=== PATIENT | male | born 1930 | race Caucasian/White ===

== ENCOUNTER 2016-10-21 19:46 | Inpatient (IN) | payer MEDICARE, BC, OTHER ==
[~2016-10-21] VITALS: Ht 182.9 cm; Wt 63.1 kg
[2016-10-21 19:46] VITALS: BP 154/75; PULSE 91; TEMP 98.3
[~2016-10-21 19:46] MED LIST: ASPI81TA82 PO; KETO10 PO; OMEP20TA PO; TAMS0.4C67 PO; ZOFR4TAB3 SL
[2016-10-21 19:53] VITALS: BP 154/75; PULSE 89; RESP 20; O2SAT 93
[2016-10-21] MEDS ORDERED: [UNRECOGNIZED DRUG - CODE] EACH EYE (19:58)
[2016-10-21] MEDS ORDERED: AMOX400C CHEW (19:58)
[2016-10-21] MEDS ORDERED: HYDRLIQ11 PO (19:58)
[2016-10-21] MEDS ORDERED: SODIUM CHLORIDE 0.9% FLUSH 5 ML FLUSH IVF PRN (20:00)
[2016-10-21] MEDS ORDERED: methylPREDNISolone SOD SUCC 125 MG/2 ML VIAL IVP ONE (20:00)
[2016-10-21] MEDS ORDERED: TIMO0.255 EACH EYE (20:00)
[2016-10-21] MEDS: RESP: ALBUTEROL 2.5 MG/IPRATROPIUM 0.5 MG NEB (SCH) INH (20:00)
[2016-10-21 20:11] LABS: AUTOMATED NEUTROPHIL # 8.8 TH/MM3 (1.8-7.7); BASOPHIL # 0.4 TH/MM3 (0-0.2); BASOPHIL % 3.7 % (0.0-2.0); EOSINOPHIL % 0.1 % (0.0-4.0); HEMATOCRIT 42.2 % (39.0-51.0); LYMPH % 5.2 % (9.0-44.0); LYMPHOCYTE # 0.5 TH/MM3 (1.0-4.8); MEAN CELL VOLUME 92.5 FL (80.0-100.0); MEAN CORPUSCULAR HEMOGLOBIN 31.6 PG (27.0-34.0); MEAN CORPUSCULAR HGB CONC 34.2 % (32.0-36.0); MONO % 7.1 % (0.0-8.0); NEUT % 83.9 % (16.0-70.0); PLATELET COUNT 229 TH/MM3 (150-450); RED BLOOD COUNT 4.57 MIL/MM3 (4.50-5.90); RED CELL DISTRIBUTION WIDTH 13.3 % (11.6-17.2); WHITE BLOOD COUNT 10.4 TH/MM3 (4.0-11.0)
[2016-10-21 20:13] VITALS: O2SAT 97
[2016-10-21 20:20] LABS: CHLORIDE 98 MEQ/L (98-107); POTASSIUM 3.9 MEQ/L (3.5-5.1); SODIUM (NA) 139 MEQ/L (136-145)
[2016-10-21 20:23] LABS: ANION GAP 8 MEQ/L (5-15); BICARBONATE 33.5 MEQ/L (21.0-32.0)
[2016-10-21 20:24] LABS: BLOOD UREA NITROGEN 26 MG/DL (7-18); MAGNESIUM 1.9 MG/DL (1.5-2.5)
[2016-10-21 20:25] LABS: HEMO FLAGS AUTO DIFF
[2016-10-21 20:26] LABS: ALT (GPT) 15 U/L (12-78)
[2016-10-21 20:27] LABS: AST (GOT) 17 U/L (15-37); GLOMERULAR FILTRATION RATE 71 ML/MIN (>89)
[2016-10-21 20:28] LABS: TOTAL BILIRUBIN ADULT 1.2 MG/DL (0.2-1.0)
[2016-10-21 20:29] LABS: ALKALINE PHOSPHATASE 64 U/L (45-117); PLATELET ESTIMATE SMEAR NORMAL (NORMAL); PLATELET MORPHOLOGY NORMAL (NORMAL); SCAN/DIFF AUTO DIFF CONFIRMED
[2016-10-21 20:32] VITALS: BP 130/61; PULSE 89; O2SAT 95
[2016-10-21 20:37] LABS: CREATINE KINASE 91 U/L (39-308)
[2016-10-21 20:53] LABS: BLOOD GAS BASE EXCESS 5.6 mmol/L (-2-2); BLOOD GAS CARBOXYHEMOGLOBIN 2.3 % (0-4); BLOOD GAS HCO3 30 mmol/L (22-26); BLOOD GAS METHEMOGLOBIN 1.1 % (0-2); BLOOD GAS O2 HGB SATURATION 82 % (90-100); BLOOD GAS OXYGEN CONTENT 16.3 Vol % (12.0-20.0); BLOOD GAS PCO2 46 mmHG (38-42); BLOOD GAS PO2 50 mmHG (61-120); BLOOD GAS TOTAL HGB 14.1 G/DL (12.0-16.0); TEMP CORR TO 98.6
[2016-10-21 20:54] LABS: CRITICAL VALUE YES; DRAW SITE RT RADIAL; FIO2 21 %; NUMBER OF ARTERIAL PUNCTURES 1; STAT YES; ULNAR PULSE Y
--- NOTE | 2016-10-21 21:13 | PD ---
HPI Chief Complaint: Respiratory Symptoms Time Seen by Provider: 19:53 Travel History International Travel<30 days: No Contact w/Intl Traveler<30days: No Traveled to known affect area: No History of Present Illness HPI The patient is an 85-year-old male with a history of COPD who states for the past week he has been slightly short of breath but 1 hour prior to admission the patient had increasing shortness of breath and his drove him here to the emergency department. He denies any fever. He does not have a history of congestive heart failure. He does not smoke. 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 Dr. Healy is the patient's primary care physician. The patient has a history of recent pulmonary embolus. PFSH Past Medical History Anemia: Yes (CHILDHOOD) Arthritis: Yes Anxiety: Yes Cancer: No Cardiovascular Problems: No COPD: Yes (ASBESTOSIS "FROM THE [employer]") Endocrine: No Gastrointestinal Disorders: Yes ("DR SAYS I HAVE A HERNIA IN MY ESOPHAGUS, CAN' T SWALLOW PILLS" STATED 10/21) GERD: Yes Genitourinary: Yes Immune Disorder: No Implanted Vascular Access Dvce: Yes Kidney Stones: Yes Musculoskeletal: Yes Neurologic: No Psychiatric: No Reproductive: No Respiratory: Yes (P.E.) Pneumonia: Yes Shingles: Yes Tetanus Vaccination: > 5 Years Influenza Vaccination: Yes Past Surgical History Body Medical Devices: TEETH IMPLANTS Eye Surgery: Yes (RIGHT RETINAL DISPLACEMENT ) Genitourinary Surgery: Yes (LITHOTRIPSY) Oral Surgery: Yes (TONSIL REMOVAL ) Tonsillectomy: Yes Other Surgery: Yes Social History Alcohol Use: No Tobacco Use: No (QUIT IN 1952) Substance Use: No Allergies-Medications (Allergen,Severity, Reaction): Coded Allergies: No Known Allergies (Unverified , 10/21/16) Reported Meds & Prescriptions Reported Meds & Active Scripts Active Reported Timoptic Opth Drops (Timolol Opth Drops) 0.25 % Soln 1 Drop EACH EYE BID Hydrocodone-Chlorpheniramine 12 HR Liq 10-8 Mg/5 Ml Liq 5 Ml PO Q12H PRN Amoxicillin-Clavulanate 400-57 mg Chew 400 Mg CHEW BID Contains phenylalanine. Review of Systems Except as stated in HPI: all other systems reviewed are Neg Physical Exam Narrative GENERAL: The patient is alert, oriented 3 in moderate respiratory distress. His vital signs show blood pressure 154/75 with respirations 20 and oximetry 93 % on 3 L nasal cannula. SKIN: Warm and dry. HEAD: Atraumatic. Normocephalic. EYES: Pupils equal and round. No scleral icterus. No injection or drainage. ENT: No nasal bleeding or discharge. Mucous membranes pink and moist. NECK: Trachea midline. No JVD. CARDIOVASCULAR: Regular rate and rhythm. No murmur appreciated. RESPIRATORY: No accessory muscle use. Clear to auscultation. Breath sounds equal bilaterally. Bilateral wheezes are heard in all lung joseph. GASTROINTESTINAL: Abdomen soft, non-tender, nondistended. Hepatic and splenic margins not palpable. MUSCULOSKELETAL: No obvious deformities. No clubbing. No cyanosis. No edema. NEUROLOGICAL: Awake and alert. No obvious cranial nerve deficits. Motor grossly within normal limits. Normal speech. PSYCHIATRIC: Appropriate mood and affect; insight and judgment normal. Data Data Last Documented VS Vital Signs Date Time Temp Pulse Resp B/P Pulse Ox O2 Delivery O2 Flow Rate FiO2 10/21/16 21:37 84 20 148/72 96 Non-Rebreather 9 10/21/16 19:46 98.3 Orders Complete Blood Count With Diff (10/21/16 19:53) Comprehensive Metabolic Panel (10/21/16 19:53) B-Type Natriuretic Peptide (10/21/16 19:53) Magnesium (Mg) (10/21/16 19:53) Ckmb (Isoenzyme) Profile (10/21/16 19:53) Troponin I (10/21/16 19:53) Arterial Blood Gas (Abg) (10/21/16 19:53) Urinalysis - C+S If Indicated (10/21/16 19:53) Iv Access Insert/Monitor (10/21/16 19:53) Ecg Monitoring (10/21/16 19:53) Oximetry (10/21/16 19:53) Oxygen Administration (10/21/16 19:53) Chest, Pa & Lat (10/21/16 19:53) Sodium Chloride 0.9% Flush (Ns Flush) (10/21/16 20:00) Methylprednisolone So Succ Inj (Solumedr (10/21/16 20:00) Albuterol-Ipratropium Neb (Duoneb Neb) (10/21/16 20:00) Labs Laboratory Tests Test 10/21/16 10/21/16 10/21/16 19:55 20:43 21:40 White Blood Count 10.4 TH/MM3 Red Blood Count 4.57 MIL/MM3 Hemoglobin 14.4 GM/DL Hematocrit 42.2 % Mean Corpuscular Volume 92.5 FL Mean Corpuscular Hemoglobin 31.6 PG Mean Corpuscular Hemoglobin 34.2 % Concent Red Cell Distribution Width 13.3 % Platelet Count 229 TH/MM3 Mean Platelet Volume 8.5 FL Neutrophils (%) (Auto) 83.9 % Lymphocytes (%) (Auto) 5.2 % Monocytes (%) (Auto) 7.1 % Eosinophils (%) (Auto) 0.1 % Basophils (%) (Auto) 3.7 % Neutrophils # (Auto) 8.8 TH/MM3 Lymphocytes # (Auto) 0.5 TH/MM3 Monocytes # (Auto) 0.7 TH/MM3 Eosinophils # (Auto) 0.0 TH/MM3 Basophils # (Auto) 0.4 TH/MM3 CBC Comment AUTO DIFF Differential Comment AUTO DIFF CONFIRMED Platelet Estimate NORMAL Platelet Morphology Comment NORMAL Red Cell Morphology Comment NORMAL Sodium Level 139 MEQ/L Potassium Level 3.9 MEQ/L Chloride Level 98 MEQ/L Carbon Dioxide Level 33.5 MEQ/L Anion Gap 8 MEQ/L Blood Urea Nitrogen 26 MG/DL Creatinine 1.00 MG/DL Estimat Glomerular Filtration 71 ML/MIN Rate Random Glucose 152 MG/DL Calcium Level 9.1 MG/DL Magnesium Level 1.9 MG/DL Total Bilirubin 1.2 MG/DL Aspartate Amino Transf 17 U/L (AST/SGOT) Alanine Aminotransferase 15 U/L (ALT/SGPT) Alkaline Phosphatase 64 U/L Total Creatine Kinase 91 U/L Troponin I 0.04 NG/ML B-Type Natriuretic Peptide 77 PG/ML Total Protein 7.7 GM/DL Albumin 3.2 GM/DL Blood Gas Puncture Site RT RADIAL Blood Gas Patient Temperature 98.6 Blood Gas HCO3 30 mmol/L Blood Gas Base Excess 5.6 mmol/L Blood Gas Oxygen Saturation 82 % Arterial Blood pH 7.43 Arterial Blood Partial 46 mmHG Pressure CO2 Arterial Blood Partial 50 mmHG Pressure O2 Arterial Blood Oxygen Content 16.3 Vol % Arterial Blood 2.3 % Carboxyhemoglobin Arterial Blood Methemoglobin 1.1 % Blood Gas Hemoglobin 14.1 G/DL Blood Gas Inspired Oxygen 21 % Urine pH 6.0 Urine Protein TRACE mg/dL Urine Glucose (UA) NEG mg/dL Urine Ketones 15 mg/dL Urine Occult Blood NEG Urine Nitrite NEG Urine Bilirubin NEG Urine Leukocyte Esterase NEG MDM Medical Decision Making Medical Screen Exam Complete: Yes Emergency Medical Condition: Yes Medical Record Reviewed: Yes Interpretation(s) The blood gases show pH 7.43, CO2 46, PO2 49.8 with O2 sat 82% supposedly on room air but the patient was taken off oxygen only 5 minutes when his O2 saturation dropped in the low 80s and blood gases were taken at that time. The complete metabolic profile shows a BUN of 26, glucose 152, albumin 3.2, total bilirubin 1.2 with bicarbonate 33.5 but is otherwise normal. The cardiac enzymes are normal. The BNP is normal. Differential Diagnosis COPD with acute exacerbation, pneumonia, bronchitis, electrolyte disorder, renal insufficiency, hypo-/hyperglycemia, pulmonary embolus, hypoxemia Narrative Course The patient appears to have COPD with acute exacerbation and hypoxemia. Plan: The patient be admitted to Dr. Healy, I discussed the patient with her. Physician Communication Physician Communication I discussed the patient with Dr. Healy Diagnosis Primary Impression: COPD with acute exacerbation Additional Impression: Hypoxemia Admitting Information Admitting Physician Requests: Admit Sukhdeep Hennessy MD Oct 21, 2016 21:13
--- NOTE | 2016-10-21 21:34 | RADHPO ---
EXAM DATE/TIME: 10/21/2016 21:13 [facility] COMPARISON: CHEST SINGLE AP, March 16, 2014, 15:06. INDICATIONS : Shortness of breath and weak feeling MEDICAL HISTORY : Asbestosis SURGICAL HISTORY : None. ENCOUNTER: Initial ACUITY: 1 day PAIN SCORE: 0/10 LOCATION: Bilateral chest FINDINGS: Severe pleural thickening and pleural as well as parenchymal scarring with distortion seen of both bobo ng apices, appears very similar to 2014. There is lateral pleural thickening, also stable. No acute i nfiltrate seen. No pleural effusion. No pneumothorax. CONCLUSION: Stable chronic findings. No acute infiltrate seen. Jake Lara MD on October 21, 2016 at 21:30 Board Certified Radiologist. This report was verified electronically.
[2016-10-21 21:37] VITALS: BP 148/72; PULSE 84; RESP 20; O2SAT 96
[2016-10-21 21:51] LABS: BLOOD, URINE NEG (NEG); GLUCOSE,URINE NEG (NEG); KETONE, URINE 15 mg/dL (NEG); NITRITE,URINE NEG (NEG)
[2016-10-21] MEDS ORDERED: ACETAMINOPHEN 325 MG TAB PO PRN (22:00)
[2016-10-21] MEDS ORDERED: NALOXONE HCL 0.4 MG/ML AMP IV PRN (22:00)
[2016-10-21] MEDS ORDERED: SODIUM CHLORIDE 0.9% FLUSH 5 ML FLUSH FLUSH PRN (22:00)
[2016-10-21 22:04] LABS: MUCUS URINE FEW /lpf (OCC); URINE COLOR YELLOW (YELLW/STRAW)
[2016-10-21 22:05] LABS: COMMENT (UR) CULT NOT INDICATED; CULTURE IF INDICATED CULT NOT INDICATED; SQUAMOUS EPITHELIAL CELL URINE 0-5 /hpf (0-5); WBC, URINE 0-2 /hpf (0-5)
[2016-10-21] MEDS ORDERED: IOHEXOL 350 MG/ML 10 ML VIAL (for RAD DIAG) IV ONE (22:23)
[2016-10-21] MEDS: ENOXAPARIN SODIUM 40 MG/0.4 ML SYRINGE SQ SCH (22:51)
--- NOTE | 2016-10-21 22:53 | RADHPO ---
EXAM DATE/TIME: 10/21/2016 22:07 [facility] COMPARISON: No previous studies available for comparison. INDICATIONS : Shortness of breath. Evaluate for embolism. IV CONTRAST: 100 cc Omnipaque 350 (iohexol) IV RADIATION DOSE: 8.14 CTDIvol (mGy) MEDICAL HISTORY : Chronic obstructive pulmonary disease. Asbestosis. SURGICAL HISTORY : None. ENCOUNTER: Initial ACUITY: 1 day PAIN SCALE: 0/10 LOCATION: Bilateral chest TECHNIQUE: Volumetric scanning of the chest was performed using a pulmonary embolism protocol MIP images were re constructed. Using automated exposure control and adjustment of the mA and/or kV according to patien t size, radiation dose was kept as low as reasonably achievable to obtain optimal diagnostic quality images. FINDINGS: No pulmonary embolus. Patchy consolidation and chronic apical and basilar interstitial changes with t raction bronchiectasis noted. There are small, bilateral pleural effusions. No pneumothorax. Heart size within normal limits. There is coronary artery calcification. CONCLUSION: 1. No pulmonary embolus. 2. Patchy acute consolidation superimposed on chronic parenchymal and pleural scarring with traction bronchiectasis. 3. Coronary artery calcification. Jake Lara MD on October 21, 2016 at 22:50 Board Certified Radiologist. This report was verified electronically.
[2016-10-22] VITALS (10 sets, daily range): BP systolic 130–143; BP diastolic 64–79; PULSE 71–83; RESP 16–20; TEMP 96.4–98.5; O2SAT 94–100
[2016-10-22] MEDS: CHLORPHENIR/HYDROCOD LIQUID 8 MG/10 MG/5 ML CUP PO PRN ×2 (00:20→11:15)
[2016-10-22] MEDS: RESP: ALBUTEROL 2.5 MG/IPRATROPIUM 0.5 MG NEB (SCH) NEB ×4 (08:25→19:42)
[2016-10-22] MEDS: TIMOLOL MALEATE 0.25% OPHT SOLN 5 ML BTL EACH EYE SCH ×2 (09:00→20:23)
[2016-10-22] MEDS ORDERED: AZITHROMYCIN 250 MG TAB PO SCH (09:00)
--- NOTE | 2016-10-22 09:17 | MH ---
cc: TIMOTHY COULTER M.D. DATE OF ADMISSION: 10/21/2016 CHIEF COMPLAINT Increased shortness of breath and fever. HISTORY OF PRESENT ILLNESS Mr. Youngblood is an 85-year-old white male, well-known to me from the office, who has a past history of pulmonary asbestosis and mild pulmonary fibrosis with a chronic small pleural effusion. He has noted a gradual decline in his function over the past year or so becoming really more prominent since July. He has seen me in the office. He has done a CT angiogram as he previously had pulmonary emboli in 2013, but his evaluation for pulmonary emboli and infection have been negative. We had done an echocardiogram that was also negative for cardiomyopathy or valvular disease and he saw Dr. Rios Wray for evaluation. He felt that his lung function studies were all stable over a few years and he did not need any particular therapy. Approximately a week and a half ago he became ill with an upper respiratory infection and cough, was seen in my office and placed on Augmentin and nebulizers with cough medication p.r.n. He continued to worsen and had a fever to 101.5 last evening at home which brought him here to the hospital. He is having increased shortness of breath and barely able to make it across the room without having to stop to rest. He was increasingly fatigued. Did not have muscle pains, other aches or other symptoms. He did have nausea yesterday but no vomiting. He has had no bowel movements for two days and is feeling somewhat constipated. He is feeling somewhat better this morning compared to last evening's shortness of breath. PAST MEDICAL HISTORY 1. Pulmonary asbestosis. 2. Glaucoma. 3. 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 4. Gastroesophageal reflux disease, under control. 5. History of kidney stones. 6. Osteoarthritis. PAST SURGICAL HISTORY Tonsillectomy. MEDICATIONS Medication at home usually only includes Timolol. He has had nebulizers and Augmentin for the past week as well as Tussionex p.r.n. for the cough. ALLERGIES No known drug allergies. FAMILY HISTORY His parents' history is really unknown. He has children who are healthy. SOCIAL HISTORY He is . He has no tobacco history, no alcohol history. He is retired. IMMUNIZATIONS He has been up-to-date on his pneumococcal vaccine. I do not think that he usually takes his flu shot. REVIEW OF SYSTEMS He denies chest discomfort. Increasing shortness of breath. Cough is improved. He did have sputum last week that is now resolved. Fever to 101.5 at home but afebrile since being here. He has had some nausea that has resolved. No vomiting. He has had decrease in his bowel movements, decreased p.o. intake, has had no appetite. He has been living on "Boost." He notes difficulty swallowing and a lot of times food will get stuck and come back up. He has not had further evaluation of that at this time. He feels as though he has had some weight loss and he does look like he has. He has had no lower extremity edema, no changes to his skin, just generalized weakness. No neck discomfort. No sore throat. No ear pain. The remainder of the review of systems is negative. PHYSICAL EXAMINATION VITAL SIGNS: Temperature has been 98.1 since admission. Pulse has been in the 70s to 80s. Blood pressure 141/64. O2 sats 100% on nasal cannula at 3 liters. Last evening when he got to the emergency department he was running in the low 80s and was placed on a non-rebreather mask and gradually decreased throughout the evening. GENERAL: A thin elderly white male sitting up, in bed in no acute distress at this time. He has O2 on at 3 liters nasal cannula. HEENT: Pupils are minimally reactive. He has a white film mostly over the right eye, somewhat over the left eye. He has very minimal vision. Nose no discharge. Oropharynx appears benign at this time. NECK: Supple. Very thin, somewhat cachectic. No adenopathy noted. No supraclavicular adenopathy. CARDIOVASCULAR: Regular rate and rhythm without murmurs. LUNGS/CHEST: Bilateral wheezing. Respiratory rate about 18. He does not appear in distress. There are no retractions. Again cachexia. His ribs are visible. ABDOMEN: Soft, nontender, nondistended. Normal active bowel sounds. No masses palpable. EXTREMITIES: Good range of motion. He has bilateral lower extremity varicosities without signs of infection. He has 2+ dorsalis pedis pulses. He is able to move all extremities well. He is able to stand independently from the bed and walk to the bathroom with minimal guidance, somewhat stiff in his movements. LABORATORY DATA White count 10.4, hemoglobin 14.4, platelets 22.9. He does have a left shift with 83.9% neutrophils. Lymphocytes 5.2%. No bands were noted. Urinalysis was clear other than 15 ketones, GFR of 71. Liver functions within normal limits. Albumin slightly low at 3.2. His blood gas last night on oxygen showed a pH of 7.43, PCO2 46, PO2 50, bicarb 30, O2 sat 82%. IMAGING DATA Chest x-ray was unremarkable. CT angiogram showed no signs of pulmonary embolus. He had patchy acute consolidation upon chronic parenchymal pleural scarring with traction bronchiectasis. He did have coronary artery calcifications. ASSESSMENT AND PLAN 1. Bronchiectasis atop of chronic pulmonary fibrosis. Will place him on nebulizers, IV steroids, Rocephin and Zithromax given his recent fever, and monitor his course. Will have him up with physical therapy to assess his ambulation. Anticipate a 2-3 day stay to break the bronchospasm. He does have a nebulizer at home. He does have difficulty swallowing pills so will need to provide him with liquid medications where possible. 2. Glaucoma/chronic vision loss. He is legally blind. Will continue his timolol. He has not had problems with bronchospasm regarding the timolol in the past and he has been on this long-term. Should he continue to have problems will need to speak with ophthalmology about changing his glaucoma medication. 3. Constipation. Will add stool softeners for him, does not seem to be severe at this time. 4. Weight loss. I have done an evaluation from the office and there is no particular reason for his weight loss other than decline in his pulmonary tolerance. Will encourage exercise as tolerable. 5. Dysphagia. May need to get him back with GI again in the near future, who he has seen for esophageal dilation in the past. MD DAYAN Styles/CHRISTY /8:16 AM /8:44 AM
[2016-10-22] MEDS: methylPREDNISolone SOD SUCC 40 MG/1 ML VIAL IV PUSH SCH ×2 (11:06→20:21)
[2016-10-22] MEDS: SODIUM CHLORIDE 0.9% FLUSH 5 ML FLUSH FLUSH SCH ×2 (11:06→20:22)
[2016-10-22] MEDS: AZITHROMYCIN SUSP 200 MG/5 ML 15 ML BTL PO SCH (11:15)
[2016-10-22] MEDS: ENOXAPARIN SODIUM 40 MG/0.4 ML SYRINGE SQ SCH (20:22)
[2016-10-23] VITALS (9 sets, daily range): BP systolic 127–149; BP diastolic 72–89; PULSE 62–86; RESP 17–20; TEMP 96.3–97.7; O2SAT 91–99
[2016-10-23] MEDS: RESP: ALBUTEROL 2.5 MG/IPRATROPIUM 0.5 MG NEB (SCH) NEB ×4 (07:53→20:12)
[2016-10-23] MEDS: TIMOLOL MALEATE 0.25% OPHT SOLN 5 ML BTL EACH EYE SCH ×2 (09:08→21:52)
[2016-10-23] MEDS: SODIUM CHLORIDE 0.9% FLUSH 5 ML FLUSH FLUSH SCH ×2 (09:09→21:53)
[2016-10-23] MEDS: methylPREDNISolone SOD SUCC 40 MG/1 ML VIAL IV PUSH SCH ×2 (09:09→21:53)
[2016-10-23] MEDS: AZITHROMYCIN SUSP 200 MG/5 ML 15 ML BTL PO SCH (10:13)
--- NOTE | 2016-10-23 10:32 | HHI.DS ---
Discharge Summary Admission Date Oct 21, 2016 at 21:55 Admitting Diagnosis COPD with acute exacerbation, hypoxemia (1) Bronchiectasis with acute lower respiratory infection Diagnosis: Principal Plan: he showed improvement with steroids, antibiotics and nebulizers. he has a neb machine at home. (2) Hypoxemia Diagnosis: Principal Plan: Still hypoxic on room air. 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 (3) Dysphagia Diagnosis: Secondary Plan: May need to have him back with GI for repeat eval, however he has a diverticulum and likely won't undergo surgery. (4) Glaucoma Diagnosis: Secondary Plan: follows with ophtho. His eye drops have been stable for years and I don' t think that is contributing to his pulmonary issues at this time . (5) Legally blind Diagnosis: Secondary Plan: His is the courtesy driver. he seems to get around well. (6) Pulmonary fibrosis Diagnosis: Secondary Plan: stable over time. Likely contributing to the hypoxia with current infection Procedures Discharge held due to wheezing. Discharge done by javier CHAPMAN. CBC/BMP: 10/21/16195410/21/161954 Significant Findings Laboratory Tests Test 10/21/16 10/21/16 10/21/16 19:55 20:43 21:40 Neutrophils (%) (Auto) 83.9 % (16.0-70.0) Lymphocytes (%) (Auto) 5.2 % (9.0-44.0) Basophils (%) (Auto) 3.7 % (0.0-2.0) Neutrophils # (Auto) 8.8 TH/MM3 (1.8-7.7) Lymphocytes # (Auto) 0.5 TH/MM3 (1.0-4.8) Basophils # (Auto) 0.4 TH/MM3 (0-0.2) Carbon Dioxide Level 33.5 MEQ/L (21.0-32.0) Blood Urea Nitrogen 26 MG/DL (7-18) Estimat Glomerular Filtration 71 ML/MIN (>89) Rate Random Glucose 152 MG/DL (74-106) Total Bilirubin 1.2 MG/DL (0.2-1.0) Albumin 3.2 GM/DL (3.4-5.0) Blood Gas HCO3 30 mmol/L (22-26) Blood Gas Base Excess 5.6 mmol/L (-2-2) Blood Gas Oxygen Saturation 82 % (90-100) Arterial Blood pH 7.43 (7.380-7.420) Arterial Blood Partial 46 mmHG (38-42) Pressure CO2 Arterial Blood Partial 50 mmHG Pressure O2 (61-120) Urine Ketones 15 mg/dL (NEG) Urine Mucus FEW /lpf (OCC) Imaging CXR clear, CTA without pulmonary embolus, brochiectasis with inflammation to the upper lobes, lower scarring Pt Condition on Discharge: Beth Barbosa MD Oct 23, 2016 10:32
[2016-10-23] MEDS ORDERED: PRED5SOL PO (10:37)
[2016-10-23] MEDS ORDERED: CEFT250S PO (10:37)
[2016-10-23] MEDS ORDERED: AZIT200S PO (10:37)
--- NOTE | 2016-10-23 11:01 | HHI.FPPN ---
Subjective Remarks Still not feeling great. Lots of stuff in his chest he feels like he can't get up. Mucinex usually helps but he needs the liquid form, can't swallow the capsules. No fever. SOB about the same. He feels he can pick and choose on the regular diet, declines pureed or soft diet. he has been losing weight and didn't really bring up the fact of his swallowing issues to me as an outpatient. will need barium swallow once infection clears. No sign of aspiration at this time. Objective Vitals Vital Signs Date Time Temp Pulse Resp B/P Pulse Ox O2 Delivery O2 Flow Rate FiO2 10/23/16 08:00 97.7 62 17 141/75 95 10/23/16 07:54 96 Nasal Cannula 3.00 10/23/16 04:00 96.9 74 20 135/81 99 10/23/16 00:00 96.3 84 18 149/87 98 10/22/16 20:00 83 10/22/16 20:00 97.3 81 18 132/74 98 10/22/16 19:42 96 Nasal Cannula 2.50 10/22/16 12:00 97.9 80 20 130/73 96 I/O 10/22/16 10/22/16 10/22/16 10/23/16 10/23/16 10/23/16 07:00 15:00 23:00 07:00 15:00 23:00 Intake Total 690 ml 0 ml 0 ml Output Total 100 ml Balance -100 ml 690 ml 0 ml 0 ml Intake Oral 690 ml IV Total 0 ml 0 ml Output Urine Total 100 ml # Voids 1 2 Result Diagram: 10/21/16195410/21/161954 Objective Remarks Gen: Thin WM, sitting eating corn flakes in milk without trouble, moist cough frequently, on O2 2L n/c CV: RRR, no murmur Lungs: bilateral moist rhonchi inspiratory and expiratory. No wheezing today Abd: soft, NT Ext: thin, no edema. Urinary Catheter: No Vascular Central Line Catheter: No A/P Problem List: (1) Bronchiectasis with acute lower respiratory infection Status: Acute Plan: he showed improvement with steroids, antibiotics and nebulizers. he has a neb machine at home. We have been able to lower O2 from nonrebreather to 2L however he is still hypoxic at rest on room air. Will try to get accapella to use today, mucinex. Reeval tomorrow and if doing well may be able to go home .I started discharge plans and meds. (2) Hypoxemia Status: Acute Plan: Still hypoxic on room air. he will need to go home on O2, hopefully temporary, however with his pulmonary fibrosis, may potentially benefit from prison use likely with activity and sleep. (3) Dysphagia Status: Acute Plan: he just brought this up to me with this admission. Will need to get him a barium swallow outpt once his current infection clears. Doesn't seem to be aspiration related but caution. Pt declines to have a soft/pureed diet and states he will pick through the regular diet as he can. Ensure supplement.. (4) Glaucoma Status: Acute Plan: follows with ophtho. His eye drops have been stable for years and I don' t think that is contributing to his pulmonary issues at this time . 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 (6) Pulmonary fibrosis Status: Acute Plan: stable over time. Likely contributing to the hypoxia with current infection. he has seen Dr. Rios Wray in the recent past and pulmonary function was stable over a few years. 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
[2016-10-23] MEDS ORDERED: MAGNESIUM HYDROXIDE SUSP 30 ML CUP PO PRN (11:15)
[2016-10-23] MEDS: guaiFENesin SOLUTION 200 MG/10 ML CUP PO PRN ×2 (11:52→17:07)
[2016-10-23] MEDS: ENOXAPARIN SODIUM 40 MG/0.4 ML SYRINGE SQ SCH (21:53)
[2016-10-24] VITALS (7 sets, daily range): BP systolic 129–152; BP diastolic 71–85; PULSE 67–79; RESP 20–24; TEMP 96.3–97.5; O2SAT 86–97
[2016-10-24] MEDS: RESP: ALBUTEROL 2.5 MG/IPRATROPIUM 0.5 MG NEB (SCH) NEB ×3 (07:41→16:13)
[2016-10-24] MEDS: methylPREDNISolone SOD SUCC 40 MG/1 ML VIAL IV PUSH SCH (08:14)
[2016-10-24] MEDS: SODIUM CHLORIDE 0.9% FLUSH 5 ML FLUSH FLUSH SCH (08:15)
[2016-10-24] MEDS: TIMOLOL MALEATE 0.25% OPHT SOLN 5 ML BTL EACH EYE SCH (08:17)
[2016-10-24] MEDS: AZITHROMYCIN SUSP 200 MG/5 ML 15 ML BTL PO SCH (10:26)
[2016-10-24] MEDS ORDERED: OXYGENTANK NAS.CANULA (13:34)
--- NOTE | 2016-10-24 13:44 | HHI.DCPOC ---
Discharge Care Plan Diagnosis: (1) Dysphagia (2) Glaucoma (3) Legally blind (4) Pulmonary fibrosis (5) Hypoxemia (6) Bronchiectasis with acute lower respiratory infection Goals to Promote Your Health * To prevent worsening of your condition and complications * To maintain your health at the optimal level Directions to Meet Your Goals Take your medications as prescribed Follow your dietary instruction Follow activity as directed Keep your appointments as scheduled Take your immunizations and boosters as scheduled If your symptoms worsen call your PCP, if no PCP go to Urgent Care Center or Emergency Room Smoking is Dangerous to Your Health. Avoid second hand smoke Call the 24-hour hour crisis hotline for domestic abuse at Giovanni Palomo MD Oct 24, 2016 13:44
--- NOTE | 2016-10-24 13:45 | HHI.FF ---
Face to Face Verification Diagnosis: (1) Bronchiectasis with acute lower respiratory infection (2) Hypoxemia (3) Legally blind (4) Pulmonary fibrosis (5) Glaucoma (6) Dysphagia Physical Therapy Order: Evaluate and Treat Home Health Nursing Order: Nursing assessment with vital signs I have seen patient Woodrow Youngblood on 10/24/16. My clinical findings support the need for the requested home health care services because: Patient has SOB I certify that my clinical findings support that this patient is homebound because: Hx COPD- exertion dyspnea/weakness Unsteady gait/balance Giovanni Palomo MD Oct 24, 2016 13:44
--- NOTE | 2016-10-24 13:48 | HHI.PR ---
Subjective Remarks Follow up hypoxia, bronchiectasis. Patient wants to go home. States that he feels at his baseline. Still with dyspnea, wheeze. Objective Vitals Vital Signs Date Time Temp Pulse Resp B/P Pulse Ox O2 Delivery O2 Flow Rate FiO2 10/24/16 12:00 96.4 71 20 136/78 97 10/24/16 08:01 2.00 10/24/16 08:01 86 21 10/24/16 08:00 96.8 72 24 152/85 92 10/24/16 07:42 96 Nasal Cannula 2.00 10/24/16 04:00 96.3 67 20 143/80 97 10/24/16 00:00 97.5 77 20 129/71 97 10/23/16 20:15 95 Nasal Cannula 2.00 10/23/16 20:05 78 10/23/16 20:00 97.5 75 20 127/72 91 10/23/16 16:00 97.6 80 18 140/78 94 I/O 10/23/16 10/23/16 10/23/16 10/24/16 10/24/16 10/24/16 07:00 15:00 23:00 07:00 15:00 23:00 Intake Total 0 ml 560 ml 160 ml Output Total 250 ml Balance 0 ml 310 ml 160 ml Intake Oral 560 ml 160 ml IV Total 0 ml Output Urine Total 250 ml # Voids 2 # Bowel Movements 0 0 Result Diagram: 10/21/16195410/21/161954 Imaging Last Impressions CT Angiography 10/21/162150 Signed Impressions: Service Date/Time: September 22:07 - CONCLUSION: 1. No pulmonary embolus. 2. Patchy acute consolidation superimposed on chronic parenchymal and pleural scarring with traction bronchiectasis. 3. Coronary artery calcification. Jake Lara MD Chest X-Ray 10/21/161952 Signed Impressions: Service Date/Time: September 21:13 - CONCLUSION: Stable chronic findings. No acute infiltrate seen. Jake Lara MD Objective Remarks General: Elderly male in no acute distress. Heart: Regular rate and rhythm. No murmur. Lungs: Bilateral rhonchi. Breathing is nonlabored. Abdomen: Soft, nontender, nondistended. Extremities: No lower extremity edema. Psych: Alert and oriented. 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 Bronchiectasis, pulmonary fibrosis: Patient has acute lower respiratory infection in addition to his chronic lung disease. Clinically improving with steroids, antibiotics, nebulizers. Will discharge home with home oxygen. 2. Dysphagia: Further workup to be done as outpatient. 3. Glaucoma, legally blind: Continue eyedrops. 4. DVT prophylaxis: Lovenox. Discharge Planning Discharge home in stable condition with home health physical therapy and nursing. Follow-up with PCP. Regular diet as tolerated. Activity as tolerated. 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
--- NOTE | 2016-11-09 15:45 | HHI.DS ---
cc: Beth Healy MD Discharge Summary Admission Date Oct 21, 2016 at 21:55 Discharge Date: Oct 24, 2016 Admitting Diagnosis COPD with acute exacerbation, hypoxemia (1) Bronchiectasis with acute lower respiratory infection ICD Code: J47.0 (2) Hypoxemia ICD Code: R09.02 (3) Pulmonary fibrosis ICD Code: J84.10 (4) Dysphagia ICD Code: R13.10 (5) Glaucoma ICD Code: H40.9 (6) Legally blind ICD Code: H54.8 Procedures None Brief History - From Admission The patient is an 85-year-old white male who presented to the emergency department with complaint of increased shortness of breath and fever. He has a history of pulmonary asbestosis and mild pulmonary fibrosis with chronic small pleural effusion. Approximately a week and a half before admission he developed an upper respiratory infection and was seen by his PCP as an outpatient. He was started on Augmentin and nebulizers. He developed worsening of his shortness of breath and developed fever up to 101.5. He was advised to go to the hospital for evaluation. Imaging Last Impressions CT Angiography 10/21/162150 Signed Impressions: Service Date/Time: September 22:07 - CONCLUSION: 1. No pulmonary embolus. 2. Patchy acute consolidation superimposed on chronic parenchymal and pleural scarring with traction bronchiectasis. 3. Coronary artery calcification. Jake Lara MD Chest X-Ray 10/21/161952 Signed Impressions: Service Date/Time: September 21:13 - CONCLUSION: Stable chronic findings. No acute infiltrate seen. Jake Lara MD PE at Discharge General: Elderly male in no acute distress. Heart: Regular rate and rhythm. No murmur. Lungs: Bilateral rhonchi. Breathing is nonlabored. Abdomen: Soft, nontender, nondistended. Extremities: No lower extremity edema. Psych: Alert and oriented. Hospital Course The patient was admitted for management of bronchiectasis, chronic pulmonary fibrosis. He was started on IV steroids and antibiotics. He was continued on supplemental oxygen and nebulizers. He showed improvement throughout the hospitalization, although he still required supplemental oxygen. On the day of discharge he was felt to be stable for discharge home. Arrangements were made for home oxygen prior to discharge. Pt Condition on Discharge: Stable Discharge Disposition: Disch w/ Home Health Serv Discharge Time: <= 30 minutes Discharge Instructions DIET: Follow Instructions for: As Tolerated, No Restrictions Activities you can perform: Regular-No Restrictions Follow up Referrals: PCP Follow-up - 1 Week New Medications: Cefuroxime Liq (Ceftin Liq) 250 Mg/5 Ml Susp 500 MG PO BID Infection Days 5 Ref 0 ML Oxygen tank (Oxygen tank) 1 Ea Tank 2 LITER MARGARITO.[employer] CONTINUOUS Oxygen Concentrator Portable Gaseous 2 L/min via Nasal Cannula Continuous For 99 months HYPOXEMIA PREVENTION #1 CYLINDER Prednisone Liq (Prednisone Liq) 5 Mg/5 Ml Soln 10 MG PO DAILY wheezing #10 Ref 0 ML Azithromycin Liq (Zithromax Liq) 200 Mg/5 Ml Susp 500 MG PO Q24H bronchiectasis Days 2 Ref 0 ML Continued Medications: Hydrocodone-Chlorpheniramine 12 HR Liq (Hydrocodone-Chlorpheniramine 12 HR Liq) 10-8 Mg/5 Ml Liq 5 ML PO Q12H PRN COUGH AND/OR COLD SYMPTOMS Ref 0 ML Timolol Opth Drops (Timoptic Opth Drops) 0.25 % Soln 1 DROP EACH EYE BID Glaucoma #1 Ref 0 BOTTLE Discontinued Medications: Amoxicillin-Clavulanate (Amoxicillin-Clavulanate) 400-57 mg Chew 400 MG CHEW BID Contains phenylalanine. Infection Ref 0 TAB Giovanni Palomo MD Nov 09, 2016 15:45
== END 2016-10-24 17:09 | disposition home health service (06) | DRG 191 ==
LOC: PHED 19:46 → PHEDA 21:55 → PHEDH 10-22 01:55 → PH3B 10-22 07:54
PROVIDERS: ADMIT Family Medicine; ATTEND Family Medicine
PROC: 3E0F7GC Introduction of Other Therapeutic Substance into Respiratory Tract, Via Natural or Artificial Opening (ICD-10-PCS; principal; 2016-10-21)
DX: J47.0 Bronchiectasis with acute lower respiratory infection (principal); J90 Pleural effusion, not elsewhere classified; R64 Cachexia; R13.10 Dysphagia, unspecified; J61 Pneumoconiosis due to asbestos and other mineral fibers; K21.9 Gastro-esophageal reflux disease without esophagitis; R09.02 Hypoxemia; Z86.711 Personal history of pulmonary embolism; Z87.891 Personal history of nicotine dependence; Z87.442 Personal history of urinary calculi; M19.90 Unspecified osteoarthritis, unspecified site; K59.00 Constipation, unspecified; H54.8 Legal blindness, as defined in USA; H40.9 Unspecified glaucoma; I83.93 Asymptomatic varicose veins of bilateral lower extremities
CPT/HCPCS: 36600; 71020; 71275; 80053; 81001; 82550; 82805; 83735; 83880; 84484; 85025; 94620; 94640; 94664; 94667; 94668; 96374; J0696; J1650; J2920; J2930; Q9967